=== PATIENT | male | born 1965 | race Caucasian/White ===

== ENCOUNTER 2018-09-16 07:30 | Inpatient (IN) | payer BC ==
[~2018-09-16] VITALS: Ht 193 cm; Wt 131.5 kg
[2018-09-16 07:38] VITALS: Ht 193 cm; Wt 131.5 kg
[2018-09-16 08:27] LABS: microscopic required? NO
[2018-09-16 08:30] LABS: BASOPHIL % 0.1 % (0-2); CALCIUM 8.4 mg/dL (8.5-10.1); CARBON DIOXIDE 24.4 mmol/L (21-32); CHLORIDE SERUM 105 mmol/L (98-107); CREATININE SERUM 1.2 mg/dL (0.7-1.3); GFR1 > 60 mL/min; GLUCOSE SERUM 109 mg/dL (74-106); PLATELET COUNT 178 x10^3mcL (130-400); POTASSIUM SERUM 3.2 mmol/L (3.5-5.1); RED CELL DISTRIBUTION WIDTH 13.6 % (11.5-14.5); SODIUM SERUM 139 mmol/L (136-145)
[2018-09-16 08:33] LABS: UA SPECIFIC GRAVITY 1.015 (1.005-1.035); urine erythrocyte NEGATIVE (NEGATIVE)
[2018-09-16 08:35] LABS: ALBUMIN 3.7 g/dL (3.4-5.0); ALKALINE PHOSPHATASE 82 U/L (46-116); ALT/SGPT 23 U/L (16-63); AST/SGOT 19 U/L (15-37); BILIRUBIN TOTAL 1.1 mg/dL (0.20-1.00)
--- NOTE | 2018-09-16 08:48 | NUR ---
PT AWAKE AND ALERT. PT C/O C/P AND SOB X3 DAYS. PT REPORTS FAINTING YESTERDAY AFTER A "FIT" OF COUGHING. ECHYMOSIS NOTED TO R PAT. NAD. RESP E/U. MSE COMPLETED BY DR VAUGHN.
[2018-09-16] MEDS ORDERED: LYRICA150 M1 PO (09:38)
[2018-09-16] MEDS ORDERED: QVAR REDIHALE10.6 G1 IH (09:40)
[2018-09-16] MEDS ORDERED: PROINH INH (09:40)
[2018-09-16] MEDS ORDERED: BENICAR HCT1 TAB PO (09:40)
[2018-09-16] MEDS ORDERED: ATORVASTATIN CA40 M1 PO (09:49)
[2018-09-16] MEDS ORDERED: SERTRALINE100 M1 PO (09:49)
[2018-09-16] MEDS ORDERED: XANAX0.5 MG PO (09:49)
[2018-09-16] MEDS ORDERED: PROTONIX TR40 M1 PO (10:08)
[2018-09-16] MEDS ORDERED: ZANAFLEX CAPSULE4 MG PO (10:09)
[2018-09-16] MEDS ORDERED: ZANAFLEX CAPSULE2 MG PO (10:10)
[2018-09-16] MEDS ORDERED: TRAZODONE50 M1 PO (10:10)
--- NOTE | 2018-09-16 10:25 | NUR ---
RECEIVED PT FROM ED NURSE, TRANSFERRED VIA BED. PT AMBULATORY, GAIT SLOW, BALANCE STEADY. AAOX4. REPORTED MILD HEADACHE AND DIZZINESS. RESP EVEN AND UNLABORED ON RA, EQUAL CHEST EXPANSION. DENIES SOB. REPORTED PRODUCTIVE COUGH W/ REDDISH BROWN PHLEGM. STATED HE FEELS PAIN TO R LUNG AND FROM CHRONIC BACK PAIN. REPOSITIONED W/ HOB ELEVATED. VS FOLLOWS: T: 99.1, P: 85, R:14, BP: 114/49, MAP: 70, O2: 93. ON TELE 16 SHOWING NSR. IV TO LAC W/ NO SIGNS OF INFILTRATION, RECEIVING IVPB ZITHROMYCIN AT THIS TIME, INFUSING WELL. BED IN LOWEST POSITION AND CALL LIGHT WITHIN REACH. WILL CONTINUE TO MONITOR.
[2018-09-16 11:07] VITALS: BP 114/49
[2018-09-16 12:35] VITALS: BP 93/60
[2018-09-16 16:59] VITALS: BP 106/81
--- NOTE | 2018-09-16 17:45 | NUR ---
PT IN BED HAVING DINNER. AAOX4. RESP EVEN AND UNLABORED ON RA. DENIES SOB AT THIS TIME. REPORTED R LUNG AND BACK PAIN BUT TOLERABLE AT THIS TIME. IV TO RAC W/ NO SIGNS OF INFILTRATION, IVF INFUSING WELL. BED IN LOWEST POSITION AND CALL LIGHT WITHIN REACH. FAMILY AT BEDSIDE. WILL ENDORSE TO ONCOMING NURSE.
--- NOTE | 2018-09-16 19:20 | NUR ---
RECEIVED PT FROM PREVIOUS SHIFT NURSE. PT AOX4. DENIES XAVIER/DIZZINESS. TELE #16, NSR, HR 77. DENIES CP/PRESSURE. NO SOB/DIFFICULTY BREATHING, ON RA. IV TO LAC, INTACT AND PATENT. BED IN LOWEST POSITION. CALL LIGHT WITHIN REACH. WILL CONTINUE TO MONITOR.
[2018-09-16 20:37] VITALS: BP 113/84
[2018-09-16 22:30] VITALS: BP 113/84
--- NOTE | 2018-09-17 01:35 | NUR ---
PT RESTING IN BED. RR EVEN AND UNLABORED. NO ACUTE DISTRESS NOTED. CALL LIGHT WITHIN REACH. BED IN LOWEST POSITION. WILL CONTINUE TO MONITOR.
[2018-09-17 04:50] VITALS: BP 120/69
[2018-09-17 06:27] LABS: CALCIUM 8.4 mg/dL (8.5-10.1); CARBON DIOXIDE 24.5 mmol/L (21-32); CHLORIDE SERUM 105 mmol/L (98-107); GFR1 > 60 mL/min; GLUCOSE SERUM 137 mg/dL (74-106); POTASSIUM SERUM 3.9 mmol/L (3.5-5.1); SODIUM SERUM 140 mmol/L (136-145)
[2018-09-17 06:30] LABS: PLATELET COUNT 208 x10^3mcL (130-400); RED CELL DISTRIBUTION WIDTH 14.1 % (11.5-14.5)
[2018-09-17 06:59] LABS: BASOPHIL % 0 % (0-2)
--- NOTE | 2018-09-17 07:20 | NUR ---
AAO X4.C/O GEN PAIN ALL OVER HIS BODY.LUNG SOUND DIM ON THE BASES.ON SR ON THE MONITOR.IVF NS GOING AT 50 ML/HR INFUSING WELL.CALL LIGHT WITHIN REACH.INSTRUCTED TO CALL FOR ANY PAIN/DISCOMFORT.WILL CONTINUE TO MONITOR PT.
--- NOTE | 2018-09-17 09:00 | NUR ---
MED PASS DONE BY [facility] STUDENT WITH HER CLINICAL INSTRUCTOR.
[2018-09-17 09:13] VITALS: BP 121/74
--- NOTE | 2018-09-17 10:09 | NUR ---
GAVE PT NORCO 1 TAB FOR C/O BODY ACHES AT11/21 PAIN MEDS.WILL CONTINUE TO MONITOR PT.
--- NOTE | 2018-09-17 11:09 | NUR ---
WENT TO RECHECK PAIN LEVEL.CLAIMS TO FEEL A LOT BETTER.PT COMFORTABLE AT THE MOMENT.RATED PAIN TO 2/10 PAIN LEVEL.
[2018-09-17 12:29] VITALS: BP 102/68
--- NOTE | 2018-09-17 14:14 | NUR ---
SPECIMEN COLECTED FOR MRSA.
[2018-09-17 18:41] VITALS: BP 124/73
--- NOTE | 2018-09-17 19:16 | NUR ---
NO SIGNIFICANT CHANGE NOTED.WILL ENDORSE TO NEXT SHIFT.
--- NOTE | 2018-09-17 19:48 | NUR ---
PT. AWAKE, ALERT, ORIENTED X4. DENIES HEADACHE OR DIZZINESS. BREATH SOUNDS DIMINISHED BLL, CLEAR THROUGHOUT. RESP. EVEN, UNLABORED. NO SOB NOTED. PT. ON RA. NO SOB NOTED. ABD. SOFT AND ROUND, BOWEL SOUNDS ACTIVE. ECCHYMOSIS TO RT. ABD. WALL. OTHERWISE SKIN INTACT. PEDAL PULSES STRONG BLE. NO EDEMA NOTED. FAMILY AT BEDSIDE. CALL LIGHT WITHIN REACH.
[2018-09-17 20:33] VITALS: BP 101/58
--- NOTE | 2018-09-17 23:34 | NUR ---
PT. RESTING QUIETLY, EYES CLOSED. APPEARS TO BE SLEEPING. CALL LIGHT WITHIN REACH.
[2018-09-18 05:56] VITALS: BP 123/84
--- NOTE | 2018-09-18 06:17 | NUR ---
PT. AWAKE, SITTING UP AT BEDSIDE. NO RESP. DISTRESS THROUGHOUT THE NIGHT. IV SITE REMAINS INTACT. C/O HEADACHE, PRN NORCO GIVEN. CALL LIGHT WITHIN REACH. WILL ENDORSE PT. CARE TO INCOMING NURSE.
--- NOTE | 2018-09-18 07:00 | NUR ---
AAO X4.C/O H/A AT 7/10 PAIN SCALE.LUNG SOUND DIM ON THE BASES.ON SR ON THE MONITOR.IVF NS GOING AT 50 ML/HR INFUSING WELL.CALL LIGHT WITHIN REACH.INSTRUCTED TO CALL FOR ANY PAIN/DISCOMFORT.WILL CONTINUE TO MONITOR PT.
[2018-09-18 07:01] LABS: CALCIUM 8.4 mg/dL (8.5-10.1); CARBON DIOXIDE 23.5 mmol/L (21-32); CHLORIDE SERUM 106 mmol/L (98-107); CREATININE SERUM 0.9 mg/dL (0.7-1.3); GFR1 > 60 mL/min; GLUCOSE SERUM 130 mg/dL (74-106); POTASSIUM SERUM 4.5 mmol/L (3.5-5.1); SODIUM SERUM 140 mmol/L (136-145)
[2018-09-18 07:09] LABS: BASOPHIL % 0.1 % (0-2); PLATELET COUNT 214 x10^3mcL (130-400); RED CELL DISTRIBUTION WIDTH 14.2 % (11.5-14.5)
[2018-09-18 09:15] VITALS: BP 128/85
[2018-09-18] MEDS ORDERED: LEVAQUIN750 MG PO (12:57)
[2018-09-18 13:00] VITALS: BP 127/78
[2018-09-18 13:05] VITALS: BP 127/78
--- NOTE | 2018-09-18 14:04 | NUR ---
PT D/C TO HOME IV AND MONITOR D/C'D.RX AND D/C INSTRUCTION GIVEN PT VERBALIZES UNDERSTANDING.ALSO RETURNED 2 BOTTLES OF LYRICA TO PT.1ST BOTTLE LYRICA 150 MG ENDING COUNT=84 WITNESSED BY ROBYN,CHARGE NURSE AND 2ND LYRICA 75 MG ENDING COUNT=24 WITNESSED BY ROBYN,CHARGE NURSE.WENT DWN VIA WHEELCHAIR ACCOMPANIED BY AND STUDENT NURSE.
== END 2018-09-18 14:26 | disposition home or self-care (01) | DRG 190 ==
LOC: ED 07:30 → DU 09:31
PROVIDERS: Emergency Medicine; ADMIT Internal Medicine
DX: J44.0 Chronic obstructive pulmonary disease with (acute) lower respiratory infection (principal); J18.9 Pneumonia, unspecified organism; I10 Essential (primary) hypertension; E78.00 Pure hypercholesterolemia, unspecified; F41.9 Anxiety disorder, unspecified; R09.02 Hypoxemia; G89.29 Other chronic pain; M54.9 Dorsalgia, unspecified; E66.01 Morbid (severe) obesity due to excess calories; Z68.35 Body mass index [BMI] 35.0-35.9, adult; Z71.3 Dietary counseling and surveillance; F17.200 Nicotine dependence, unspecified, uncomplicated; Z71.6 Tobacco abuse counseling
CPT/HCPCS: J0456; J0696; J1644; J2270; J2920; J7030; J7050; J7613; J7620; J7644; Q0092